=== PATIENT | female | born 1990 | race Caucasian/White ===

== ENCOUNTER 2016-09-29 10:02 | Day surgery (SDC) | payer OTHER ==
[~2016-09-29] VITALS: Ht 170.2 cm; Wt 102.1 kg
[~2016-09-29 10:02] MED LIST: ATARAX,VISTARIL25 MG PO; BIRTH CONTROLL; FIORICET,ESG1 TABLET PO; FLINTSTONES1 EACH PO; KEFLEX500 MG PO; LABETALOL HCL100 MG PO; METHIMAZOLE10 MG PO; MOTRIN800 MG PO; PREDNISONE10 M1 PO; PRENATAL TABLE1 EAC3 PO; PRENATAL1 EACH PO; TYLENOL WITH C1 EACH PO; ZYRTEC10 M2 PO
[2016-09-29 10:30] VITALS: BP 121/74
[2016-09-29 10:42] LABS: EOSINOPHIL (%) 1.3 % (0-5); EOSINOPHIL COUNT 0.1 K/uL (0-0.3); HEMATOCRIT 37.2 % (36.0-46.0); IMMATURE GRANULOCYTE (%) 0.2 % (0.0-0.7); INSTRUMENT ABS NEUTROPHIL CT 2.8 K/uL; LYMPHOCYTE COUNT 2.1 K/uL (1.0-2.8); MCH 28.7 PG (29.0-34.0); MCHC 33.1 G/DL (30.0-36.0); MCV 86.7 FL (83-99); MEAN PLAT.VOLUME 10.2 uM^3 (9.5-12.4); MONOCYTE (%) 8.8 % (3-12); MONOCYTE COUNT 0.5 K/uL (0-0.8); NEUTROPHIL (%) 51.4 % (45-76); NEUTROPHIL COUNT 2.8 K/uL (1.8-6.4); PLATELET COUNT 285 K/uL (156-360); RBC DIS.WIDTH-CV 13.1 % (11.8-14.6); RBC DIS.WIDTH-SD 41.3 % (39-53); RED BLOOD COUNT 4.29 M/uL (3.80-5.20); WHITE BLOOD COUNT 5.4 K/uL (4.1-10.2)
[2016-09-29] MEDS ORDERED: IBUPROFEN800 MG PO ×2 (13:15→13:16)
[2016-09-29] MEDS ORDERED: PERCOCET 5/31 TABLET PO ×2 (13:15→13:16)
[2016-09-29 14:40] VITALS: BP 133/72
[2016-09-29 15:46] VITALS: BP 117/60
[2016-09-29 17:22] VITALS: BP 132/70
== END 2016-09-29 17:26 | disposition home or self-care (01) ==
LOC: SDC 10:02
PROVIDERS: Nurse Practitioner
PROC: 10D17ZZ Extraction of Products of Conception, Retained, Via Natural or Artificial Opening (ICD-10-PCS; principal; 2016-09-29)
DX: O02.1 Missed abortion (principal); Z3A.01 Less than 8 weeks gestation of pregnancy; E66.9 Obesity, unspecified; Z68.35 Body mass index [BMI] 35.0-35.9, adult
CPT/HCPCS: 85025; 86850; 86900; 86901; 88305; J1100; J1200; J1885; J2175; J2250; J2300; J2405; J2704; J3010; J7050

== ENCOUNTER 2017-03-02 22:47 | Emergency (ER) | payer OTHER ==
[~2017-03-02] VITALS: Ht 170.2 cm; Wt 113.2 kg
[~2017-03-02 22:47] MED LIST changes: +IBUPROFEN800 MG PO; +PERCOCET 5/31 TABLET PO
[2017-03-03] MEDS ORDERED: ZOFRAN4 MG PO (00:41)
[2017-03-03] MEDS ORDERED: AUGMENTIN500 MG PO (00:41)
[2017-03-03 01:38] VITALS: BP 133/82
== END 2017-03-03 01:42 | disposition home or self-care (01) ==
LOC: EME 22:47
DX: S00.83XA Contusion of other part of head, initial encounter (principal); J01.20 Acute ethmoidal sinusitis, unspecified; W50.0XXA Accidental hit or strike by another person, initial encounter; Z88.5 Allergy status to narcotic agent
CPT/HCPCS: 70450; 99281; 99284